=== PATIENT | male | born 1955 | race Caucasian/White ===

== ENCOUNTER 2020-07-06 09:42 | Emergency (ER) | payer BC ==
[~2020-07-06] VITALS: Ht 172.7 cm; Wt 90.0 kg
[2020-07-06 09:43] VITALS: BP 190/118
== END 2020-07-06 10:34 | disposition home or self-care (01) ==
LOC: ER 09:43
DX: B34.9 Viral infection, unspecified (principal); I10 Essential (primary) hypertension; Z20.828 Contact with and (suspected) exposure to other viral communicable diseases
CPT/HCPCS: 36415; 87635; 99283